=== PATIENT | male | born 1960 | race Two or more races ===

== ENCOUNTER 2020-02-12 17:10 | Emergency (ER) | payer BC ==
[2020-02-12 17:32] VITALS: BP 140/79
--- NOTE | 2020-02-12 18:14 | ER Document Report ---
ED Medical Screen (RME) - General Chief Complaint: Laceration Stated Complaint: LACERATION Time Seen by Provider: 02/12/20 18:06 Mode of Arrival: Ambulatory Information source: Patient Notes: 60-year-old male presented to ED for laceration to the right hand. It is a very irregular laceration to the palm of his hand. 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 He states his tetanus was within the last year. He is alert oriented respirations regular nonlabored speaking in full sentences. I have informed him we will get him back to a room as soon as we can and treat his laceration. I have been formed the charge nurse that he did cut his hand about 2 hours ago and would need a room appropriately. I have greeted and performed a rapid initial assessment of this patient. A comprehensive ED assessment and evaluation of the patient, analysis of test results and completion of medical decision making process will be conducted by an additional ED providers. Physical Exam - Vital signs Vitals: Temp Pulse Resp BP Pulse Ox 98.4 F 54 L 20 140/79 H 99 02/12/20 17:30 02/12/20 17:30 02/12/20 17:30 02/12/20 17:30 02/12/20 17:30 Course - Vital Signs Vital signs: Temp Pulse Resp BP Pulse Ox 98.4 F 54 L 20 140/79 H 99 02/12/20 17:30 02/12/20 17:30 02/12/20 17:30 02/12/20 17:30 02/12/20 17:30
== END 2020-02-13 00:25 | disposition left against medical advice (07) ==
LOC: ER 17:10
DX: S61.411A Laceration without foreign body of right hand, initial encounter (principal); W29.0XXA Contact with powered kitchen appliance, initial encounter
CPT/HCPCS: 99281